=== PATIENT | female | born 1950 | race Hispanic/Latino ===

== ENCOUNTER 2016-09-01 07:43 | Outpatient (CLI) | payer BC, MEDICARE ==
--- NOTE | 2016-09-01 10:08 | Cat Scan Report ---
CT CHEST WITHOUT CONTRAST INDICATION: Evaluate for right brachial plexus lesion. COMPARISON: None similar. FINDINGS: Noncontrast chest CT demonstrates normal heart size. No effusions. Patent airway. Assessment of the great vessels and for detecting subtle lymphadenopathy limited due to lack of IV contrast. No aortic aneurysm or definite significant intrathoracic adenopathy however. A small left supraclavicular lymph nodes may measure approximately 1.2 x 0.6 cm, axial image 27, series 2. No definite abnormal supraclavicular masses identified. Dominant right jugular vein. Thyroid size normal. Approximately 1 cm right thyroid hypodense lesion, axial image 35, series 2. Slight lingular scarring. Slight nonspecific distal esophageal prominence and a tiny, 6 mm right distal paraesophageal lymph node. No significant acute imaged upper abdominal CT abnormality. Some density along the distal stomach as on axial series 2, images [id number] nonspecific, questionably artifactual. Mild spinal degenerative spurring at few levels. CONCLUSION: Unremarkable noncontrast chest CT with few incidental findings, as above. Thank you for the opportunity to participate in this patient's care.
--- NOTE | 2016-09-04 08:37 | Magnetic Resonance Report ---
MR CERVICAL SPINE WITHOUT CONTRAST HISTORY: Right arm radiculopathy, neck pain, C7 lesion on right. TECHNIQUE: Axial T2. Sagittal T1, T2 and STIR. COMPARISON: No previous exam of the cervical spine. Correlation is made with a CT chest without contrast performed the same day. FINDINGS: There is been previous fusion from C5-C7. There is complete bony bridging at the C5-6 and C6-7 disc spaces. The facet joints at these levels are not fused. There is mild to moderate disc desiccation and narrowing at the remaining levels. There is mild facet arthropathy which is most pronounced at C4-5 and C7-T1. There is no evidence for suspicious bone lesion or fracture. No C7 bone lesion. Approximate 1 cm vertebral bone hemangioma within T2 is noted. The cervical spinal cord is normal size and signal intensity throughout. No abnormal signal or thickening. C2-3: No significant abnormality with the disc. There is mild left facet arthropathy. Left neural foraminal narrowing is estimated at 25%. C3-4: Mild bilateral uncovertebral spurring is evident. No central canal stenosis, herniation or high-grade neural foraminal narrowing. C4-5: There is moderate to severe posterior and bilateral uncovertebral spurring. Mild facet arthropathy. Posterior spurring abuts and mildly displaces the anterior spinal cord. There is mild central canal stenosis at this level measuring 7-8 mm in AP dimension. There is moderate to severe bilateral neural foraminal narrowing estimated at 75%. C5-6: Fusion changes. No significant abnormality. C6-7: Fusion changes. No significant abnormality. C7-T1: A small right paracentral and central disc protrusion are identified without mass effect on the cord. There is mild to moderate facet arthropathy. Bilateral neural foraminal narrowing is estimated at 50%. T1-2: A small right paracentral annular tear and disc protrusion are identified. No mass effect. T2-3: A moderate midline annular tear and disc protrusion or identified without mass effect. IMPRESSION: No bony lesion. T2 vertebral bone hemangioma is identified. Stable C5-7 fusion. Cervical spondylosis. There is moderate to severe circumferential spurring and mild facet arthropathy at C4-5 with mild central canal stenosis and moderate to severe bilateral neural foraminal narrowing. Please see above. Mild to moderate bilateral neural foraminal narrowing at C7-T1 estimated at 50%. Focal annular tears and small disc protrusions at C7-T1, T1-2 and T2-3.
== END 2016-09-01 07:44 | disposition home or self-care (01) ==
LOC: MRI 07:43
PROVIDERS: ATTEND Specialist
DX: G54.0 Brachial plexus disorders (principal)
CPT/HCPCS: 71250; 72141

== ENCOUNTER 2016-10-26 06:10 | Outpatient (CLI) | payer BC, MEDICARE ==
[2016-10-26 06:55] LABS: Basophils % (Auto) 1.7 % (0.0-1.8); Eosinophils % (Auto) 4.7 % (0.0-4.3); Hematocrit 36.6 % (30.3-42.9); Hemoglobin 11.9 gm/dl (10.1-14.3); Mean Corpuscular HGB Conc 32 % (30-34); Mean Corpuscular Hemoglobin 30 pg (28-32); Mean Corpuscular Volume 93 fl (79-97); Platelet Count 215 K/mm3 (140-440); Red Blood Count 3.93 M/mm3 (3.65-5.03); Red Cell Distribution Width 12.8 % (13.2-15.2); White Blood Count 4.9 K/mm3 (4.5-11.0)
[2016-10-26 07:08] LABS: Alanine Aminotransferase 21 units/L (7-56); Albumin 4.3 g/dL (3.9-5); Alkaline Phosphatase 58 units/L (35-129); Anion Gap 16 mmol/L; BUN/Creatinine Ratio 21.42; Bilirubin,Total < 0.2 mg/dL (0.1-1.2); Blood Urea Nitrogen 15 mg/dL (7-17); Calcium 8.9 mg/dL (8.4-10.2); Carbon Dioxide 29 mmol/L (22-30); Chloride 106.2 mmol/L (98-107); Glucose 91 mg/dL (65-100); Potassium 3.8 mmol/L (3.6-5.0); Sodium 147 mmol/L (137-145); Total Protein 6.4 g/dL (6.3-8.2)
[2016-10-26 07:25] LABS: Erythrocyte Sedimentation Rate 5 mm/Hr (0-20)
[2016-10-28 18:07] LABS: Gamma Globulin 0.7 g/dL (0.8-1.7); Interpretation Consistent with
== END 2016-10-26 06:11 | disposition home or self-care (01) ==
LOC: LAB 06:10
PROVIDERS: ATTEND Specialist
DX: G60.9 Hereditary and idiopathic neuropathy, unspecified (principal); M06.89 Other specified rheumatoid arthritis, multiple sites
CPT/HCPCS: 36415; 80053; 82951; 84165; 85025; 85652; 86038; 86140

== ENCOUNTER 2017-01-15 10:40 | Outpatient (CLI) | payer BC, MEDICARE ==
--- NOTE | 2017-01-15 12:17 | Cat Scan Report ---
CT HEAD WITHOUT CONTRAST INDICATION: Syncope, collapse, dizziness, orthostatic hypotension. COMPARISON: None similar. FINDINGS: Noncontrast head CT demonstrates age-appropriate, symmetric ventricles and sulci without acute or recent infarct, hemorrhage, mass effect or midline shift. No abnormal extra-axial fluid collections. Benign bilateral basal ganglia calcifications. Mild periventricular hypodensities. Slight atherosclerotic ICA calcifications. Posterior fossa structures and basilar cisterns appear within normal limits. Symmetric eye globes. Hypoplastic right frontal sinus. Clear aerated paranasal sinuses and mastoid air cells. Intact calvarium. Normal overlying scalp soft tissues. Numerous radiopaque dental material incidentally noted. Left external auditory canal debris may be directly visualized. Cervical spondylosis. CONCLUSION: No acute intracranial CT abnormality, as described. Thank you for the opportunity to participate in this patient's care.
== END 2017-01-15 10:41 | disposition home or self-care (01) ==
LOC: VAS 10:40
PROVIDERS: ATTEND Internal Medicine Endocrinology, Diabetes & Metabolism
DX: I95.1 Orthostatic hypotension (principal); R42 Dizziness and giddiness; W19.XXXA Unspecified fall, initial encounter; Y93.89 Activity, other specified; Y92.89 Other specified places as the place of occurrence of the external cause; Y99.8 Other external cause status
CPT/HCPCS: 70450; 93880

== ENCOUNTER 2017-02-14 08:25 | Outpatient (CLI) | payer BC, MEDICARE ==
--- NOTE | 2017-02-14 11:41 | Vascular Lab Report ---
LOWER EXTREMITY ARTERIAL PHYSIOLOGIC STUDY: REASON FOR EXAM: Peripheral arterial disease. COMMENTS ON THE RIGHT: Ankle brachial index is 1.15. This value is normal. Pulse volume recording at the level of the ankle is normal. Exercise testing was not done. COMMENTS ON THE LEFT: Ankle brachial index is 1.05. This value is normal. Pulse volume recording at the level of the ankle is normal. Exercise testing was not done. IMPRESSION: RIGHT: No hemodynamically significant arterial disease. LEFT:No hemodynamically significant arterial disease.
--- NOTE | 2017-02-14 11:44 | Event Note ---
Date: 02/14/17 tm stress mpi no cp no significant ischemic changes gated spect: lv ef >70% normal wall motion spect mpi: small mild anteroseptal and inferlateral stress perfusion defects that appear reversible of unclear significance, possibly related to motion artifact noted on the stress rotating planar images. tm stress: non ischemic. normal exercise tolerance. normal heart rate and bp response. gated spect: normal post stress lv systolic function spect mpi: equivocal/probably normal. perfusion abnormalities described may be artifacutal in origin. no evidence of significant myocardial ischemia or necrosis.
--- NOTE | 2017-02-17 05:36 | Treadmill Report ---
NUCLEAR CARDIAC IMAGING INDICATION FOR PROCEDURE: Chest pain. Informed consent was obtained. DESCRIPTION OF PROCEDURE: Resting nuclear cardiac images were performed 45-60 minutes following intravenous administration of 10 mCi of technetium-99m Myoview. The patient then underwent treadmill exercise testing according to the Eliecer protocol. Stress myocardial perfusion imaging was performed 15-30 minutes following the intravenous administration of 28 mCi of technetium-99m Myoview. Images were performed in a 180-degree arc from 45 degrees OROZCO to 45 degrees LPO. After data acquisition and reconstruction, the images were processed and reoriented into the vertical long, horizontal long, and horizontal short axis slices. A polar color map of the horizontal short axis slices was generated and reviewed. The rotating planar images reviewed in cinematic format on the computer console. The rotating planar images demonstrate what appears to be vertical motion. Gated SPECT imaging demonstrates a post-stress left ventricular ejection fraction of greater than 70%. Left ventricular segmental wall motion is normal. Myocardial perfusion imaging demonstrates no significant cavity change between stress and rest. There is a small mild 180 degree opposed stress-induced anteroseptal and inferolateral perfusion defect that appears to be reversible. The clinical significance of this perfusion abnormality is unclear and it may be related to motion artifact. Nuclear cardiac imaging demonstrates grossly normal left ventricular systolic function. There is no evidence for prior myocardial necrosis. Although, there is a suggestion of inferolateral and anteroseptal myocardial ischemia of a small and mild degree, the clinical significance of this finding is unclear, and it may be artifactual (patient motion) in origin. A significant degree of ischemia is not seen. [facility]# [id number] DELL/BERKLEY BA
== END 2017-02-14 08:26 | disposition home or self-care (01) ==
LOC: VAS 08:25
PROVIDERS: ATTEND Internal Medicine
DX: I34.1 Nonrheumatic mitral (valve) prolapse (principal); E78.2 Mixed hyperlipidemia; R55 Syncope and collapse; R25.2 Cramp and spasm
CPT/HCPCS: 78452; 93017; 93306; 93922; A9502

== ENCOUNTER 2017-03-28 05:31 | Day surgery (SDC) | payer BC, MEDICARE ==
[2017-03-22 10:48] LABS: Basophils % (Auto) 2.8 % (0.0-1.8); Hematocrit 37.8 % (30.3-42.9); Hemoglobin 12.4 gm/dl (10.1-14.3); Mean Corpuscular HGB Conc 33 % (30-34); Mean Corpuscular Hemoglobin 30 pg (28-32); Mean Corpuscular Volume 90 fl (79-97); Platelet Count 264 K/mm3 (140-440); Red Cell Distribution Width 13.2 % (13.2-15.2); White Blood Count 4.5 K/mm3 (4.5-11.0)
--- NOTE | 2017-03-22 10:57 | Anesthesia Consultation ---
Anesthesia Consult and Med Hx Date of service: 03/28/17 - Airway Anesthetic Teeth Evaluation: Good ROM Head & Neck: Adequate Mental/Hyoid Distance: Adequate Mallampati Class: Class II Intubation Access Assessment: Good - Pulmonary Exam CTA: Yes - Cardiac Exam Cardiac Exam: No Murmur - Pre-Operative Health Status ASA Pre-Surgery Classification: ASA2 Proposed Anesthetic Plan: General - Pulmonary Hx Smoking: No Hx Asthma: Yes (RARE INHALER USE) Hx Respiratory Symptoms: No SOB: No COPD: No Hx Pneumonia: No Hx Sleep Apnea: No (DENNY PRE SCREEN LOW RISK) - Cardiovascular System Hx Hypertension: No Hx Coronary Artery Disease: No Hx Heart Attack/AMI: No Hx Angina: No Hx Cardia Arrhythmia: No Hx Pacemaker: No Hx Internal Defibrillator: No Hx Valvular Heart Disease: No Hx Heart Murmur: No Hx Peripheral Vascular Disease: No - Central Nervous System Hx Neuromuscular Disorder: No Hx Seizures: No CVA: No Hx Back Pain: Yes (NECK AND BACK PAIN) Hx Psychiatric Problems: No - Gastrointestinal Hx Ulcer: No Hx Gastroesophageal Reflux Disease: No - Endocrine Hx Renal Disease: No Hx Insulin Dependent Diabetes: No Hx Non-Insulin Dependent Diabetes: No - Hematic Hx Anemia: No - Other Systems Hx Alcohol Use: No Hx Substance Use: No Hx Cancer: No Hx Obesity: No
[2017-03-22 10:59] LABS: INR 0.96 (0.87-1.13); Partial Thromboplastin Time 26.4 Sec. (24.2-36.6)
[2017-03-22 11:06] LABS: Alanine Aminotransferase 18 units/L (7-56); Albumin 4.2 g/dL (3.9-5); Albumin/Globulin Ratio 1.4 %; Alkaline Phosphatase 68 units/L (35-129); Anion Gap 15 mmol/L; BUN/Creatinine Ratio 24.28; Blood Urea Nitrogen 17 mg/dL (7-17); Calcium 9.2 mg/dL (8.4-10.2); Carbon Dioxide 28 mmol/L (22-30); Chloride 106.4 mmol/L (98-107); Glucose 92 mg/dL (65-100); Potassium 4.3 mmol/L (3.6-5.0); Sodium 145 mmol/L (137-145); Total Protein 7.1 g/dL (6.3-8.2)
[2017-03-28] MEDS ORDERED: ZOFRAN IV NR (06:20)
[2017-03-28] MEDS ORDERED: LACTATED RINGERS 1,000 ML IV SCH (06:30)
[2017-03-28] MEDS ORDERED: PEPCID PO NR (06:30)
[2017-03-28] MEDS ORDERED: VERSED IV NR (06:30)
[2017-03-28] MEDS ORDERED: NEURONTIN PO NR (06:30)
[2017-03-28] MEDS ORDERED: NACL BACTERIOSTATIC INFILTRATI ONE (06:31)
[2017-03-28] MEDS ORDERED: LACTATED RINGERS 1,000 ML ONE (06:55)
[2017-03-28] MEDS ORDERED: NACL 0.9% 250ML 250 ML ONE (07:06)
[2017-03-28] MEDS ORDERED: GELFOAM TP ONE ×3 (07:06→07:19)
[2017-03-28] MEDS ORDERED: BACITRACIN ONE ×2 (07:06→07:38)
[2017-03-28] MEDS ORDERED: NACL P/F VIAL (10 ML) 10 ML ONE (07:06)
[2017-03-28] MEDS ORDERED: XYLOCAINE 0.5%/ EPI 1:200,000 INFILTRATI ONE ×2 (07:06→07:20)
[2017-03-28] MEDS ORDERED: THROMBIN (BOVINE) TP ONE ×3 (07:06→07:20)
[2017-03-28] MEDS ORDERED: ULTIVA 4 MG in NACL 0.9% 80 ML IV ONE (07:14)
[2017-03-28] MEDS ORDERED: NACL 0.9% 250ML IV ONE (07:19)
[2017-03-28] MEDS ORDERED: BACITRACIN IR ONE ×2 (07:19)
[2017-03-28] MEDS ORDERED: NACL 0.9% IR ONE ×2 (07:20→07:30)
[2017-03-28] MEDS ORDERED: NACL P/F VIAL (10 ML) INFILTRATI ONE (07:21)
[2017-03-28] MEDS ORDERED: XYLOCAINE MPF 2% ONE (07:28)
[2017-03-28] MEDS ORDERED: QUELICIN ONE (07:28)
[2017-03-28] MEDS ORDERED: DIPRIVAN 10 MG/ML IV ONE ×3 (07:28→07:30)
[2017-03-28] MEDS ORDERED: SUBLIMAZE ONE (07:28)
[2017-03-28] MEDS ORDERED: CLEOCIN 600 MG/50 mL 600 MG/50 ML BAG IV NR (07:30)
[2017-03-28] MEDS ORDERED: TRANSDERM-SCOP TD NR (07:30)
[2017-03-28] MEDS ORDERED: MINERAL OIL TOPICAL LIGHT TP ONE (07:39)
[2017-03-28] MEDS ORDERED: ePHEDrine SULFATE ONE (08:10)
--- NOTE | 2017-03-28 09:19 | Post Operative Note ---
Pre-op diagnosis: anterior spinal artery compression Post-op diagnosis: same Procedure: ACDF C45 with instrumentation Anesthesia: NINA Surgeon: NICOLAS ROBB Estimated blood loss: none Pathology: none Specimen disposition: discarded Condition: stable Disposition: PACU
[2017-03-28] MEDS ORDERED: PROAIR IH PRN (09:20)
[2017-03-28] MEDS ORDERED: DECADRON ONE (09:34)
[2017-03-28] MEDS: DILAUDID IV PRN ×3 (09:43→10:18)
[2017-03-28] MEDS ORDERED: DILAUDID ONE (09:50)
[2017-03-28] MEDS ORDERED: HALFPRIN EC PO SCH (10:00)
--- NOTE | 2017-03-28 10:25 | XRay Report ---
CERVICAL SPINE RADIOGRAPH INDICATION: Anterior spinal artery compression. COMPARISON: None similar. FINDINGS: Single lateral cervical spine intraoperative fluoroscopic radiograph demonstrates anterior fusion hardware at C4-C5 with small intervertebral disc maintainer. C5 and more inferior block cervical fusion possible. C3 degenerative spurring also seen. Few radiopaque dental material. Endotracheal tube and few other extrinsic artifacts. CONCLUSION: Intraoperative fluoroscopic assistance provided for C4-C5 ACDF, as described. Thank you for the opportunity to participate in this patient's care.
--- NOTE | 2017-03-28 10:47 | Post Anesthesia Evaluation ---
- Post Anesthesia Evaluation Patient Participated: Yes Airway Patent: Yes Stable Respiratory Function: Yes Nausea/Vomiting: No Temp > 96.8F: Yes Pain Manageable: Yes Adequeate Hydration: Yes Anesthesia Complications: No Block Receding Appropriately: Not Applicable Patient on Ventilator: No
[2017-03-28] MEDS ORDERED: PROVENTIL IH PRN (12:00)
[2017-03-28 12:29] VITALS: BP 115/71
[2017-03-28] MEDS ORDERED: NEURONTIN PO SCH (22:00)
[2017-03-28] MEDS ORDERED: DESYREL PO SCH (22:00)
--- NOTE | 2017-03-29 06:55 | Operative Report ---
SURGEON: Alfredo Aguiar M.D. SENIOR SOFTWARE ANALYST: None. PREOPERATIVE DIAGNOSES: Cervical disk herniation, cervical myelopathy, C4-C5. POSTOPERATIVE DIAGNOSES: Cervical disk herniation, cervical myelopathy, C4-C5. PROCEDURES: 1. Anterior cervical approach to cervical diskectomy, C4-C5. 2. Decompression of the spinal cord at C4-C5, diskectomy, neuroforaminotomy. 3. Application of integrated cage at C4-C5 with anterior instrumentation. 4. Intraoperative use of fluoroscopy, application of allograft bone and intraoperative neurophysiological monitoring that remained stable. INDICATIONS: The patient is a 67-year-old female with history of cervical fusion at C5-C6, now with cord compression at C4-C5, disk herniation, and myelopathy. PHYSICAL HISTORY AND SURGERY: Detailed in the chart. DESCRIPTION OF PROCEDURE: The patient was taken to the operating room and after multiple IV lines were placed, the patient was intubated for anesthesia, was placed supine, . Multiple paddings were placed to prevent skin damage. Cervical area was sterilized using multiple rounds of DuraPrep and patient was prepped and draped in a normal usual fashion. A 3 cm incision was made in the cervical area on the right side centering around C4-C5 and this was taken down to the fascia using cautery. was performed. Platysma was identified and divided sharply using Metzenbaum and Bovie. The fascia between the more medial visceral and the more lateral neurovascular bundle was identified and developed until prevertebral fascia was cleared off of the cervical spine using Kitner's. Fluoroscopy confirmed the level at C4-C5. Next, complete diskectomy was performed at C4-C5 using a combination of Kerrisons and angled up curettes. PLL was removed using 1 mm Kerrisons. Excellent decompression of the dura was obtained in this fashion. After the endplates were prepared for interbody fusion, a 7 mm COALITION cage packed with allograft bone was impacted between C4 and C5 under the fluoroscopic guidance and anterior screws were secured to C4 and C5 using 14 mm screws and COALITION plate. The coalition cage was provided by [employer]. Neurophysiologic monitoring did not change throughout the course of surgery. Excellent hemostasis was obtained. Fascia was closed using 3-0 Vicryl and the subcutaneous tissue and skin was closed in a normal usual fashion. The patient tolerated the procedure very well with no complication. Blood loss negligible. There was no transfusion. There were no specimens. The patient extubated and taken to recovery for further observation. JOB# [id number] CYNDY/NTS
== END 2017-03-28 12:00 | disposition home or self-care (01) ==
LOC: OR 05:31
PROVIDERS: ATTEND Neurological Surgery
DX: M50.021 Cervical disc disorder at C4-C5 level with myelopathy (principal); M19.90 Unspecified osteoarthritis, unspecified site; K21.9 Gastro-esophageal reflux disease without esophagitis; M06.9 Rheumatoid arthritis, unspecified; J45.909 Unspecified asthma, uncomplicated; Z96.653 Presence of artificial knee joint, bilateral; Z98.890 Other specified postprocedural states; Z88.1 Allergy status to other antibiotic agents; Z88.0 Allergy status to penicillin; Z79.899 Other long term (current) drug therapy; Z79.01 Long term (current) use of anticoagulants
CPT/HCPCS: 20931; 22551; 22853; 36415; 72020; 80053; 85025; 85610; 85730; 88304; A4649; C1713; J0330; J1100; J1170; J2250; J2405; J2704; J3010; J7050; J7120

== ENCOUNTER 2017-04-18 12:49 | Outpatient (CLI) | payer BC, MEDICARE ==
--- NOTE | 2017-04-18 14:02 | Mammography Report ---
Bilateral mammogram: Compared to 09/30/15. CAD study utilized. Findings: Heterogeneous breast parenchyma bilaterally. No mass or microcalcification. Focal new ill-defined density asymmetry upper mid left breast. Normal axilla. Impression: Focal new density asymmetry upper left breast. Recommend spot mag and if necessary sonographic examination. BI-RADS CATEGORY: 0 = Needs additional imaging evaluation ACR BI-RADS MAMMOGRAPHIC CODES: 0 = Needs additional imaging evaluation; 1 = Negative; 2 = Benign; 3 = Probably benign; 4 = Suspicious; 5 = Malignant; 6 = Known biopsy-proven malignancy COMMENT: 1. Dense breast tissue, i.e., adenosis, fibrocystic changes, etc., may obscure an underlying neoplasm. 2. Approximately 10% of cancers are not detected with mammography. 3. A negative mammography report should not delay biopsy if a clinically suspicious mass is present. COMMENT: Patient follow-up letters are generated in [employer].
== END 2017-04-18 12:50 | disposition home or self-care (01) ==
LOC: MAMMO 12:49
PROVIDERS: ATTEND Obstetrics & Gynecology
DX: Z12.31 Encounter for screening mammogram for malignant neoplasm of breast (principal)
CPT/HCPCS: 77067; G0202

== ENCOUNTER 2017-06-14 08:31 | Outpatient (CLI) | payer BC, MEDICARE ==
--- NOTE | 2017-06-14 16:07 | Mammography Report ---
LEFT DIGITAL DIAGNOSTIC MAMMOGRAM with DIAGNOSTIC TOMOSYNTHESIS and LEFT BREAST ULTRASOUND : 06/14/17 08:31:00 CLINICAL: Recalled for asymmetry. COMPARISON:04/18/17 screening FINDINGS: Lateralmedial and spot compression MLO and CC views were performed. A spot compression MLO view demonstrates a persistent irregular 1 cm upper asymmetry and MLO tomographic image demonstrates a similar 7 mm upper asymmetry approximately 8 cm from the nipple. There is a retroareolar asymmetry on the CC view which is 6 cm from the nipple at the shape is different from the asymmetry on MLO views. Ultrasound of the upper left breast was performed and demonstrated normal fibroglandular structures with no mass, cyst or shadowing to correspond to the mammographic asymmetry. IMPRESSION: A probably benign mammographic asymmetry on MLO views with no ultrasound correlation. A probably benign mammographic asymmetry on the CC tomographic series with no ultrasound correlation and no definite correlation on the MLO series. BI-RADS CATEGORY: 3 - - Probably Benign RECOMMENDATION: Six month followup left mammogram and ultrasound if needed. ACR BI-RADS MAMMOGRAPHIC CODES: 0 = Needs additional imaging evaluation; 1 = Negative; 2 = Benign; 3 = Probably benign; 4 = Suspicious; 5 = Malignant; 6 = Known biopsy-proven malignancy COMMENT: 1. Dense breast tissue, i.e., adenosis, fibrocystic changes, etc., may obscure an underlying neoplasm. 2. Approximately 10% of cancers are not detected with mammography. 3. A negative mammography report should not delay biopsy if a clinically suspicious mass is present. COMMENT: Patient follow-up letters are generated via our [employer] application.
== END 2017-06-14 08:32 | disposition home or self-care (01) ==
LOC: MAMMO 08:31
PROVIDERS: ATTEND Obstetrics & Gynecology
DX: N64.89 Other specified disorders of breast (principal)
CPT/HCPCS: 76642; G0206; G0279

== ENCOUNTER 2017-11-14 09:03 | Outpatient (CLI) | payer BC, MEDICARE ==
--- NOTE | 2017-11-14 15:29 | Mammography Report ---
LEFT DIGITAL DIAGNOSTIC MAMMOGRAM with CAD and DIGITAL BREAST TOMOSYNTHESIS (DBT) : 11/14/17 CLINICAL: Six month followup of asymmetries. COMPARISON:06/14/17 FINDINGS: The breasts are heterogeneously dense, which may obscure small masses. No mass, architectural distortion or suspicious calcifications. Previously described subtle asymmetries on both views are less prominent. IMPRESSION: Negative mammogram. BI-RADS CATEGORY: 1 - - Negative RECOMMENDATION: Return to routine mammographic screening. COMMENT: Patient follow-up letters are generated by our [employer] application.
== END 2017-11-14 09:04 | disposition home or self-care (01) ==
LOC: MAMMO 09:03
PROVIDERS: ATTEND Obstetrics & Gynecology
DX: R92.8 Other abnormal and inconclusive findings on diagnostic imaging of breast (principal)
CPT/HCPCS: 77065; G0279

== ENCOUNTER 2018-03-26 10:42 | Outpatient (CLI) | payer BC, MEDICARE ==
--- NOTE | 2018-03-27 07:51 | Magnetic Resonance Report ---
MR LOWER EXTREMITY NON-JOINT LEFT WITHOUT CONTRAST HISTORY: Arthritis. TECHNIQUE: Multisequence, multiplanar MRI without contrast. COMPARISON: No relevant comparisons at this facility. FINDINGS: A marker is placed on the dorsum of the foot between the second and third metatarsals. There is no obvious abnormality underlying this area. No evidence for fracture, bone lesion or cyst. The bone marrow signal throughout the visualized left ankle and foot is within normal limits. Small effusion is noted in the subtalar joint. Moderate osteoarthritic changes are identified in the midfoot. No bony erosions are detected. The musculotendinous structures are intact. No evidence for tendinitis or tenosynovitis. The visualized Achilles tendon is intact. The plantar fascia is intact. 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
== END 2018-03-26 10:43 | disposition home or self-care (01) ==
LOC: MRI 10:42
PROVIDERS: ATTEND Podiatrist Foot & Ankle Surgery
DX: M19.072 Primary osteoarthritis, left ankle and foot (principal); E78.00 Pure hypercholesterolemia, unspecified; J45.909 Unspecified asthma, uncomplicated; K21.9 Gastro-esophageal reflux disease without esophagitis; M19.90 Unspecified osteoarthritis, unspecified site; Z90.710 Acquired absence of both cervix and uterus

== ENCOUNTER 2019-01-16 10:00 | Outpatient (CLI) | payer MEDICARE ==
--- NOTE | 2019-01-16 11:18 | Mammography Report ---
BONE DENSITY STUDY: Postmenopausal screening. DEFINITIONS: BMD = Bone Mineral Density T-score = BMD related to mean peak bone mass of young adult (mean expressed in Standard Deviation) Z-score = Age matched BMD expressed in SD World Health Organization (WHO) Diagnostic Criteria Normal T-score > -1 SD Osteopenia T-score between -1 and -2.4 SD Osteoporosis T-score -2.5 SD or below FINDINGS: The weighted average BMD of lumbar spine L1-L4 is 0.784 with a T-score of -2.4. The weighted average BMD of the left hip is 0.794 with a T-score of -1.2. It is of note that L1-L3 bodies have bone densities within the osteoporosis range and comparison to prior exam in September of 2015 demonstrates progressive worsening of these 3 bone levels with mild improvement at L4 which is in the osteopenic range. The hip has slightly worsened. IMPRESSION: The patient's average T-score is diagnostic for osteopenia and average relative risk for fracture. NOTE: BMD is not the only risk factor for fracture; also consider factors such as the patient's age, risk of falling, previous osteoporotic fracture, family history of osteoporotic fractures, current smoker, and low body weight. King's triangle is a region of interest in femur, predominantly of trabecular bone. It is not a true anatomic site, and ISCD does not recommend its use clinically.
--- NOTE | 2019-01-16 11:22 | Mammography Report ---
BILATERAL MAMMOGRAM: FINDINGS: The breast tissue is heterogeneously dense, which could obscure detection of small masses (approximately 50%-75% glandular). No mass, distortion, suspicious calcification, or skin change is seen. No significant change compared to prior examinations in 2017. CAD was utilized. IMPRESSION: Negative mammogram. There is no mammographic evidence of malignancy. RECOMMENDATION: Follow-up per ACS guidelines. BI-RADS CATEGORY: 1 = Negative ACR BI-RADS MAMMOGRAPHIC CODES: 0 = Needs additional imaging evaluation; 1 = Negative; 2 = Benign; 3 = Probably benign; 4 = Suspicious; 5 = Malignant; 6 = Known biopsy-proven malignancy COMMENT: 1. Dense breast tissue, i.e., adenosis, fibrocystic changes, etc., may obscure an underlying neoplasm. 2. Approximately 10% of cancers are not detected with mammography. 3. A negative mammography report should not delay biopsy if a clinically suspicious mass is present. COMMENT: Patient follow-up letters are generated in [employer].
== END 2019-01-16 10:01 | disposition home or self-care (01) ==
LOC: MAMMO 10:00
PROVIDERS: ATTEND Obstetrics & Gynecology
DX: Z12.31 Encounter for screening mammogram for malignant neoplasm of breast (principal); M85.88 Other specified disorders of bone density and structure, other site; E78.00 Pure hypercholesterolemia, unspecified; K21.9 Gastro-esophageal reflux disease without esophagitis; Z78.0 Asymptomatic menopausal state; Z90.710 Acquired absence of both cervix and uterus
CPT/HCPCS: 77067; 77080